=== PATIENT | male | born 1965 | race Caucasian/White ===

== ENCOUNTER 2022-07-12 10:33 | Emergency (ER) | payer SELFPAY ==
--- NOTE | 2022-07-12 12:10 | NUR ---
CALLED FOR TRIAGE, NO ANSWER.
--- NOTE | 2022-07-12 12:25 | NUR ---
CALLED FOR TRIAGE, NO ANSWER.
--- NOTE | 2022-07-12 12:39 | NUR ---
CALLED FOR TRIAGE NO ANSWER.
--- NOTE | 2022-07-12 12:55 | NUR ---
PATIENT LEFT WITHOUT BEING SEEN BY DR. FERRO. NO FURTHER CARE PROVIDED FOR PATIENT.
== END 2022-07-12 12:10 | disposition left against medical advice (07) ==
LOC: MED 10:33
DX: Z53.21 Procedure and treatment not carried out due to patient leaving prior to being seen by health care provider (principal)